=== PATIENT | female | born 1995 | race Caucasian/White ===

== ENCOUNTER 2019-01-23 16:10 | Inpatient (IN) | payer MEDICAID ==
[~2019-01-23] VITALS: Ht 160 cm; Wt 74.4 kg
[2019-01-23 16:26] VITALS: BP 126/84; PULSE 84; RESP 18; Ht 160 cm; Wt 74.4 kg
[2019-01-23] MEDS ORDERED: PREN-93 PO (16:26)
--- NOTE | 2019-01-23 16:32 | TRIAGE ---
OB Triage Datetime Report Generated by CPN: 01/23/2019 16:32 Datetime: 01/23/2019 16:23 Assessment Type: Triage Maternal Assessment Level of Consciousness: Keenly Alert, Responsive DTR's/Clonus: DTRs 2+; No Clonus Headache: Denies Blurred Vision: No Respiratory Effort: Unlabored; Regular Rhythm; Equal Expansion Breath Sounds, Left: Clear and Equal Breath Sounds, Right: Clear and Equal Nausea/Vomiting: Denies RUQ Epigastric Pain: Denies Lower Extremities Edema: None Degree: None Upper Extremities Edema: None Degree: None Facial Edema: None Fall Risk Assessment History of Falling: (0) No Secondary Diagnosis: (0) No Ambulatory Aid: (0) Bedrest/Nurse Assist IV Therapy: (0) No Gait: (0) Normal/Bedrest/Immobile Mental Status: (0) Oriented to Own Ability Fall Score: 0 Fall Risk Score Definition: No Risk: No action required Datetime: 01/23/2019 16:21 Time of Arrival: 01/23/2019 16:00 EGA: 38.6 Arrived By: Wheelchair Arrived From: Home Chief Complaint: pt. here C/O SROM SINCE 1300 TODAY. Movement: Present Contractions: Irregular Rupture of Membranes: Ruptured Vaginal Bleeding: None Vaginal Discharge: Denies Recent Sexual Intercouse: Denies Abdominal Trauma: Not Applicable Patient Complaints: None Time Provider Notified: 01/23/2019 16:30 Provider Notified: FITZ Initial Plan: NST/SVE Datetime: 01/23/2019 16:20 Vaginal Exam Dilatation (cms): 2.0 Effacement (%): 80 Station: -2 Exam By: YUDI Amniotic Fluid Color: Clear Amniotic Fluid Amount: Moderate Amniotic Fluid Odor: None Vaginal Bleeding: None Pool: Positive Nitrazine: Positive Cervix, Consistency: Soft Cervix, Position: Midposition Presentation 'A': Cephalic
--- NOTE | 2019-01-23 16:51 | HP ---
Date/Time of Note Date/Time of Note DATE: 01/23/19 TIME: 16:49 OB - History Hx of Present Free Text/Dictation @38+wks GA in labor : 2 Para: 1 Care: Limited Care Obstetrical Complications: None Medical Complications: None Past Family/Social History * Past Medical, Surgical, Family and Obstetric Histories reviewed from chart. OB Admission Exam Vital Signs Vital Signs Vital Signs Date Temp Pulse Resp B/P (MAP) Pulse Ox O2 O2 Flow FiO2 Time Delivery Rate 01/23/19 98.5 84 18 126/84 16:26 (98) Physical Exam Abdomen: WNL Cervical Dilatation: 2cm Effacement: 75% Station: -1 Membranes: Ruptured Amniotic Fluid: Clear Heart Rate: 140's Accelerations: Accelerations Present Varibility: Moderate Contractions on Admission: 6-10 Minutes Apart OB Assessment/Plan Reason for admission: observation Other Assessment: PMH Denies PSH Denies Plan: Expectant Management YANNA BYRNES M.D. Jan 23, 2019 16:51
[2019-01-23] MEDS ORDERED: IBUPROFEN 600 MG TAB PO PRN (17:00)
[2019-01-23] MEDS ORDERED: BUTORPHANOL 2 MG INJ IV PRN (17:00)
[2019-01-23] MEDS ORDERED: LIDOCAINE 1% (MPF) 30 ML INJ INJ PRN (17:00)
[2019-01-23] MEDS ORDERED: OXYTOCIN 30 UNITS/LR 500 ML IV PRN (17:00)
[2019-01-23] MEDS ORDERED: AMPICILLIN 2 GM/NS (PMX) 100 ML IV ONE (17:00)
[2019-01-23] MEDS ORDERED: METHYLERGONOVINE 0.2 MG INJ IM PRN (17:00)
[2019-01-23] MEDS ORDERED: CARBOPROST 250 MCG INJ IM PRN (17:00)
[2019-01-23] MEDS ORDERED: OXYTOCIN 30 UNITS/LR 500 ML IV SCH ×3 (17:00)
[2019-01-23] MEDS ORDERED: MISOPROSTOL 200 MCG TAB PR PRN (17:00)
[2019-01-23] MEDS: LACTATED RINGER'S 1,000 ML IV SCH (17:26)
[2019-01-23] MEDS ORDERED: AMPICILLIN 1 GM/NS (PMX) 50 ML IV SCH (21:00)
[2019-01-24] MEDS: LACTATED RINGER'S 1,000 ML IV SCH (00:47)
--- NOTE | 2019-01-24 02:03 | PREAC ---
Date/Time of Note Date/Time of Note DATE: 01/24/19 TIME: 02:01 Anesthesia Eval and Record Evaluation Time Pre-Procedure Interview DATE: 01/24/19 TIME: 02:01 Age 23 Sex female NPO: 8 hrs Preoperative diagnosis Active Labor Planned procedure Labor Epidural Past Medical History Past Medical History: None Surgery & Anesthesia Issues No known issue Meds Anticoagulation: No Beta Jenifer within 24 hr: No Reason Beta Jenifer not given: Pt. not on B-Jenifer Reported Medications Vit No.124/Iron/FA ( Vitamin Tablet) 1 Each Tablet, 1 EACH PO DAILY, TAB 01/23/19 Current Medications Lactated Ringer's 1,000 ml @ 125 mls/hr Q8H IV Last administered on 01/24/19at 00:47; Admin Dose 125 MLS/HR; Start 01/23/19 at 16:36 Ampicillin 50 ml @ 100 mls/hr Q4H IV ; Start 01/23/19 at 21:00 Butorphanol Tartrate (Stadol) 2 mg Q2H PRN IV .PAIN SCALE 6-10; Start 01/23/19 at 17:00 Lidocaine (Xylocaine 1% (Mpf)) 30 ml ONCE PRN INJ .EPISIOTOMY; Start 01/23/19 at 17:00 Oxytocin/Lactated Ringer's 500 ml @ 500 mls/hr ONCE POST IV ; Start 01/23/19 at 17:00 Oxytocin/Lactated Ringer's 500 ml @ 125 mls/hr POST IV ; Start 01/23/19 at 17:00 Ibuprofen (Motrin) 600 mg ONCE PRN PO .PAIN 1-5; Start 01/23/19 at 17:00 Oxytocin/Lactated Ringer's 500 ml @ 0 mls/hr ONCE PRN IV .VAGINAL BLEEDING; Start 01/23/19 at 17:00 Methylergonovine Maleate (Methergine) 0.2 mg ONCE PRN IM .VAGINAL BLEEDING; Start 01/23/19 at 17:00 Carboprost Tromethamine (Hemabate) 250 mcg ONCE PRN IM .VAGINAL BLEEDING; Start 01/23/19 at 17:00 Misoprostol (Cytotec) 1,000 mcg ONCE PRN [place] .VAGINAL BLEEDING; Start 01/23/19 at 17:00 Oxytocin/Lactated Ringer's 500 ml @ 0 mls/hr FOR AUGMENTATION IV Last administered on 01/23/19at 20:26; Admin Dose 1 MLS/HR; Start 01/23/19 at 17:00 Meds reviewed: Yes Allergies Coded Allergies: No Known Allergy (Unverified , 01/23/19) Allergies Reviewed: Yes Labs/Studies Labs Reviewed: Reviewed by anesthesiologist Result Diagram: 01/23/19 1645 Laboratory Tests 01/23/19 16:45 Blood Bank Test 01/23/19 16:45 Blood Type O POSITIVE Rh Immune Globulin Candidate NO test: N/A Pre-procedure Exam Last vitals Vital Signs Date Temp Pulse Resp B/P (MAP) Pulse Ox O2 O2 Flow FiO2 Time Delivery Rate 01/23/19 98.5 84 18 126/84 16:26 (98) Airway: Adequate mouth opening Mallampati: Mallampati II Teeth: Normal Lung: Normal Heart: Normal ASA Physical Status ASA physical status: 2 Emergency: None Planned Pain Management Epidural Pre-operative Attestations Prior to commencing anesthesia and surgery, the patient was re-evaluated, there was verification of: *The patient's identity *The results of appropriate recent lab work and preoperative vital signs *The above evaluation not changing prior to induction *Anesthetic plan, risk benefits, alternative and complications discussed with patient/family; questions answered; patient/family understands, accepts and wishes to proceed. DASHA DE LUNA MD Jan 24, 2019 02:03
[2019-01-24] MEDS ORDERED: FENTAnyl 2MCG/ML-ROPIV 0.2% 100 ML ONE (02:05)
[2019-01-24] MEDS ORDERED: DIPHENHYDRAMINE 50 MG INJ IV PRN (03:30)
[2019-01-24] MEDS ORDERED: TRIMETHOBENZAMIDE 100 MG/ML VIAL IM PRN (03:30)
[2019-01-24] MEDS ORDERED: ONDANSETRON 4 MG INJ IV PRN ×2 (03:30→04:00)
[2019-01-24] MEDS ORDERED: NALOXONE (0.4 MG/ML) INJ IV PRN (03:30)
[2019-01-24] MEDS ORDERED: LACTATED RINGER'S 1,000 ML IV* SCH (03:45)
[2019-01-24] MEDS ORDERED: OXYTOCIN 30 UNITS/LR 500 ML IV SCH (03:45)
--- NOTE | 2019-01-24 03:45 | LDN ---
Date/Time of Note Date/Time of Note DATE: 01/24/19 TIME: 03:43 Delivery Summary Weeks of Gestation Term gestation Placenta Delivered: Spontaneously Meconium: none Episiotomy: No Anesthesia type: Epidural Estimated blood loss: 100 Sponge & Needle done & correct: Yes All needle counts correct: Yes Any foreign bodies felt in the: No Infant Delivery Information Sex Infant Sex: female Apgars 1 Minute: 8 5 Minute: 9 Suctioning Nose & mouth suctioned at aleks: Yes Delee suction performed: No Umbilical Cord Umbilical cord with: 3 Vessels Cord presentations: no nuchal cord Cord Blood was obtained: Yes Mother & Baby Disposition Disposition Baby's weight 6 pounds 6 ounces/ 2900 g Mom & Baby to Maternity; Good: Yes Baby to NICU: No PRIYANKA JIMÉNEZ MD Jan 24, 2019 03:44
[2019-01-24] MEDS ORDERED: WITCH HAZEL/GLYCERIN PAD PR PRN (04:00)
[2019-01-24] MEDS ORDERED: OXYTOCIN 30 UNITS/LR 500 ML IV PRN (04:00)
[2019-01-24] MEDS ORDERED: MAGNESIUM HYDROXIDE 30ML CUP PO PRN (04:00)
[2019-01-24] MEDS ORDERED: CARBOPROST 250 MCG INJ IM PRN (04:00)
[2019-01-24] MEDS ORDERED: BENZOCAINE 20% 56 ML SPRAY TOP PRN (04:00)
[2019-01-24] MEDS ORDERED: METHYLERGONOVINE 0.2 MG INJ IM PRN (04:00)
[2019-01-24] MEDS ORDERED: DIBUCAINE 1% 30 GM OINT TOP PRN (04:00)
[2019-01-24] MEDS ORDERED: MISOPROSTOL 200 MCG TAB PR PRN (04:00)
[2019-01-24] MEDS ORDERED: ACETAMINOPHEN 325 MG TAB PO PRN ×2 (04:00)
[2019-01-24] MEDS ORDERED: LANOLIN HPA 1 PKT TOP PRN (04:00)
[2019-01-24 05:25] VITALS: BP 133/81; PULSE 78; RESP 19
--- NOTE | 2019-01-24 06:29 | PAC ---
Date/Time of Note Date/Time of Note DATE: 01/24/19 TIME: 06:29 Post-Anesthesia Notes Post-Anesthesia Note Last documented vital signs Vital Signs Date Temp Pulse Resp B/P (MAP) Pulse Ox O2 O2 Flow FiO2 Time Delivery Rate 01/24/19 98.9 78 19 133/81 Room Air 05:25 (98) Activity: WNL Respiratory function: WNL Cardiovascular function: WNL Mental status: Baseline Pain reasonably controlled: Yes Hydration appropriate: Yes Nausea/Vomiting absent: Yes DASHA DE LUNA MD Jan 24, 2019 06:29
[2019-01-24 08:00] VITALS: BP 122/76; PULSE 89; RESP 18
[2019-01-24 15:38] VITALS: BP 122/67; PULSE 75; RESP 18
[2019-01-24] MEDS: IBUPROFEN 600 MG TAB PO PRN (17:49)
[2019-01-24 19:30] VITALS: BP 125/75; PULSE 73; RESP 19
[2019-01-25 00:15] VITALS: BP 126/83; PULSE 80; RESP 17
[2019-01-25] MEDS: IBUPROFEN 600 MG TAB PO PRN ×3 (00:20→14:46)
[2019-01-25 04:00] VITALS: BP 106/55; PULSE 70; RESP 17
[2019-01-25] MEDS ORDERED: ONDANSETRON 4 MG INJ IV PRN (04:00)
[2019-01-25 08:30] VITALS: BP 95/54; PULSE 68; RESP 16
[2019-01-25] MEDS: SENNA/DOCUSATE NA (8.6MG/50MG) TAB PO PRN (09:46)
--- NOTE | 2019-01-25 13:17 | PN ---
Date/Time of Note Date/Time of Note DATE: 01/25/19 TIME: 13:15 OB Subjective Subjective Subjective Denies any complaint. Vaginal bleeding decreased. Breast-feeding. Ambulating. Urinated. Denies any depressive symptoms. OB Objective Objective Objective Appearance: Alert and oriented x4 does not appear to be in any acute distress Abdomen: Soft, fundus palpable nontender at the level of umbilicus Breast: No evidence of mastitis or fissure Extremity: No calf tenderness, no click no edema no cord palpable VS - Last 72 Hours, by Label Date Temp Pulse Resp B/P (MAP) Pulse Ox O2 O2 Flow FiO2 Time Delivery Rate 01/25/19 97.8 68 16 95/54 (68) Room Air 08:30 01/25/19 97.9 70 17 106/55 04:00 (72) 01/25/19 98.2 80 17 126/83 Room Air 00:15 (97) 01/24/19 98.1 73 19 125/75 Room Air 19:30 (92) 01/24/19 98.6 75 18 122/67 15:38 (85) 01/24/19 98.0 89 18 122/76 08:00 (91) 01/24/19 98.9 78 19 133/81 Room Air 05:25 (98) 01/23/19 98.5 84 18 126/84 16:26 (98) Laboratory Tests Test 01/23/19 16:21 01/23/19 16:45 01/25/19 06:22 01/25/19 07:07 Membranes POSITIVE Rupture White Blood 10.3 10^3/ul 11.2 10^3/ul Count Red Blood Count 4.39 10^6/ul 4.25 10^6/ul Hemoglobin 11.0 g/dl 10.3 g/dl Hematocrit 34.1 % 32.8 % Mean Corpuscular 77.7 fl 77.2 fl Volume Mean Corpuscular 25.1 pg 24.2 pg Hemoglobin Mean Corpuscular 32.3 g/dl 31.4 g/dl Hemoglobin Zahraa nt Red Cell 16.8 % 17.2 % Distribution Width Platelet Count 219 10^3/UL 194 10^3/UL Mean Platelet 9.9 fl 10.0 fl Volume Immature 0.700 % 0.700 % Granulocytes % Neutrophils % 73.5 % 66.5 % Lymphocytes % 17.3 % 23.3 % Monocytes % 7.6 % 7.7 % Eosinophils % 0.7 % 1.6 % Basophils % 0.2 % 0.2 % Nucleated Red 0.0 /100WBC 0.0 /100WBC Blood Cells % Immature 0.070 10^3/ul 0.080 10^3/ul Granulocytes # Neutrophils # 7.5 10^3/ul 7.5 10^3/ul Lymphocytes # 1.8 10^3/ul 2.6 10^3/ul Monocytes # 0.8 10^3/ul 0.9 10^3/ul Eosinophils # 0.1 10^3/ul 0.2 10^3/ul Basophils # 0.0 10^3/ul 0.0 10^3/ul Nucleated Red 0.0 10^3/ul 0.0 10^3/ul Blood Cells # Prothrombin Time 12.0 Sec Prothrombin Time 0.9 Ratio INR 0.88 International Normalized Ratio Activated 27.8 Sec Partial Thrombop last Time Rapid Plasma NONREACTIVE Reagin Hepatitis B NEGATIVE Surface Antigen Hepatitis C NEGATIVE Antibody HIV (1&2) NEGATIVE Antibody Lab Scanned REFERENCE Report LAB [id number] OB Assessment/Plan Other Assessment: Status post day #1 Doing well Routine postop care Anticipate DC home tomorrow mild anemia, asymptomatic IRMA MORALES MD Jan 25, 2019 13:17
[2019-01-25 17:09] VITALS: BP 110/67; PULSE 55; RESP 17
[2019-01-25 19:45] VITALS: BP 120/64; PULSE 76; RESP 18
[2019-01-26 04:06] VITALS: BP 107/62; PULSE 62; RESP 18
[2019-01-26] MEDS: IBUPROFEN 600 MG TAB PO PRN ×2 (04:06→11:32)
[2019-01-26 08:30] VITALS: BP 116/73; PULSE 61; RESP 16
[2019-01-26] MEDS: SENNA/DOCUSATE NA (8.6MG/50MG) TAB PO PRN (09:12)
--- NOTE | 2019-01-26 13:03 | PD.PPDC ---
LINE DEPARTMENT SUPERVISOR Discharge Instruction Diagnosis [id number] Final Diagnosis: Nusco3m s/p Condition [id number] Patient Condition: [id number] Stable Diet [id number] Diet: Mbdmr4e Resume Regular Diet Activity/Restrictions [id number] Activity: Jfpvj2m May Shower Lzccy5Su Restrictions: Gzhbg0k No Lifting No Sexual Activity Nothing in the Vagina No [place] No Tampons, douche Follow-up Follow-up with Physician: 2, Week/Weeks Return to clinic for [id number] LITIGATION LEGAL ASSISTANT Instructions: [id number] Fever greater than 101 Chills Worsening abdominal pain Excessive Vaginal Bleeding More than 2 pads per hour Unable to tolerate diet [id number] OB Instructions: Lldua7o Breast Tenderness Depression Blurried Vision CARMEN DELGADILLO MD Jan 26, 2019 13:03
--- NOTE | 2019-01-26 13:05 | DS ---
Date/Time of Note Date/Time of Note DATE: 01/26/19 TIME: 13:04 Obstetrical Discharge Record Final Diagnosis Final Diagnosis: Term delivered Vaginal Delivery Obstetrical Delivery: Spontaneous Complications Augmentation: No Induction: No Rupture of Membranes: No Condition on Discharge Physical Assessment Last Vitals: vss afebrile Voiding: Yes Bowel Movement: Yes Fundus: Firm Abdomen and Incision: n/a Episiotomy: n/a Calf Tenderness: No Patient Condition: Stable CARMEN DELGADILLO MD Jan 26, 2019 13:05
--- NOTE | 2019-01-27 15:26 | DELSUM ---
Delivery Summary A-C Datetime Report Generated by CPN: 01/27/2019 15:26 DELIVERY PERSONNEL Desizing Machine Operator Head End: Rima Zimmerman MATERNAL INFORMATION Delivery Anesthesia: Epidural Medications in Delivery: 30 UNITS PITOCIN IN 500ML LR Delivery QBL (ml): 100 Placenta Cultured: No Maternal Complications: None LABOR SUMMARY EDC: 01/31/2019 00:00 No. Babies in Womb: 1 Attempted: No Labor Anesthesia: None LABOR INFORMATION Reason for Induction: Not Applicable Onset of Labor: 01/23/2019 13:00 Complete Dilatation: 01/24/2019 02:43 Cervical Ripening Agents: Other Oxytocin: Augmentation Group B Beta Strep: Negative Antibiotics # of Doses: 2G ANCEF X1 Antibiotics Time of Last Dose: 01/24/2019 00:47 Steroids Given: None Reason Steroids Not Administered: Not Applicable MEMBRANES Membranes Rupture Method: Spontaneous Rupture of Membranes: 01/23/2019 13:00 Length of Rupture (hr): 14.48 Amniotic Fluid Color: Clear Amniotic Fluid Amount: Moderate Amniotic Fluid Odor: Normal STAGES OF LABOR Stage 1 hr: 13 Stage 1 min: 43 Stage 2 hr: 0 Stage 2 min: 46 Stage 3 hr: 0 Stage 3 min: 1 Total Time in Labor hr: 14 Total Time in Labor min: 30 VAGINAL DELIVERY Episiotomy: None Laceration Extension: N/A Laceration Type: None Laceration Repair: Not Applicable Initial Vag Sponge Count: 10 Final Vag Sponge Count: 10 Initial Vag Sharps Count: 1 Final Vag Sharps Count: 1 Sponge Count Correct: Yes; Vaginal Sweep Performed Sharps Count Correct: Yes BABY A INFORMATION Delivery Date/Time: 01/24/2019 03:29 Method of Delivery: Vaginal Born in Route : No : N/A Forceps: N/A Vacuum Extraction: N/A Shoulder Dystocia : N/A SHOULDER DYSTOCIA BABY A Delivery Date/Time: 01/24/2019 03:29 PRESENTATION/POSITION BABY A Presentation: Cephalic Cephalic Presentation: Vertex Vertex Position: Right Occipital Anterior Breech Presentation: N/A PLACENTA INFORMATION BABY A Placenta Delivery Time : 01/24/2019 03:30 Placenta Method of Delivery: Spontaneous Placenta Status: Delivered SCORES BABY A Heart Rate 1 min: >100 bpm Resp Effort 1 min: Good Cry Reflex Irritability 1 min: Cough/Sneeze/Pulls Away Muscle Tone 1 min: Active Motion Color 1 min: Blue/Pale Resuscitation Effort 1 min: Tactile Stimulation SCORE 1 MIN: 8 Heart Rate 5 min: >100 bpm Resp Effort 5 min: Good Cry Reflex Irritability 5 min: Cough/Sneeze/Pulls Away Muscle Tone 5 min: Active Motion Color 5 min: Body [place], Extremit Blue Resuscitation Effort 5 min: Tactile Stimulation SCORE 5 MIN: 9 INFANT INFORMATION BABY A Gestational Age at Delivery: 39.0 Gestational Status: Full Term- 39- 40.6 Weeks Outcome : Liveborn (Annotations: Data stored by [facility] on behalf of user) Infant Condition : Stable Sex: Female IDENTIFICATION/MEDS BABY A ID Band Number: [id number] ID Band Location: Right Leg; Left Arm Sensor Applied: Yes Sensor Number: [id number] Sensor Location : Cord Clamp Vitamin K Given : Not Given Erythromycin Given: Not Given WEIGHT/LENGTH BABY A Birthweight (gm): 2900 Weight (lb): 6 Infant Weight (oz): 6 Infant Length (in): 18.00 Length (cm): 45.72 CORD INFORMATION BABY A No. Cord Vessels: 3 Nuchal Cord : N/A Cord Blood Taken: Yes Banking/Donate Info: NO Infant Suction: Mouth; Nose ASSESSMENT BABY A Complications: None Physical Findings at Delivery: Within Normal Limits Infant Respirations: Appears Normal Programmer/ALS Called : No Infant Care By: RADHA Transferred To: Remains with Mother
== END 2019-01-26 15:25 | disposition home or self-care (01) | DRG 807 ==
LOC: OBT 16:10 → L-D 16:11 → OBT 16:30 → PP1 01-24 05:22
PROVIDERS: ADMIT Obstetrics & Gynecology; ATTEND Obstetrics & Gynecology
PROC: 10E0XZZ Delivery of Products of Conception, External Approach (ICD-10-PCS; principal; 2019-01-24)
DX: O90.81 Anemia of the puerperium (principal); Z37.0 Single live birth; D64.9 Anemia, unspecified; Z3A.38 38 weeks gestation of pregnancy
CPT/HCPCS: 62322; 76815; 84112; 85025; 85610; 85730; 86592; 86703; 86803; 86900; 86901; 87340; G0463; J0290; J2210; J2590; J3010; J7120